=== PATIENT | female | born 1980 | race Caucasian/White ===

== ENCOUNTER → 2017-05-16 | Outpatient (CLI) | payer BC | LOC: COL.RAD 08:54 | DX: R47.81 Slurred speech (principal); R26.89 Other abnormalities of gait and mobility; E87.8 Other disorders of electrolyte and fluid balance, not elsewhere classified; R51 Headache | CPT/HCPCS: A9585 ==

== ENCOUNTER → 2017-06-28 | Outpatient (CLI) | payer BC | LOC: BHSO 12:42 | DX: F41.0 Panic disorder [episodic paroxysmal anxiety] (principal) | CPT/HCPCS: 90791-AI ==

== ENCOUNTER → 2017-07-26 | Outpatient (CLI) | payer BC | LOC: BHSO 13:53 | DX: F41.1 Generalized anxiety disorder (principal) ==